=== PATIENT | male | born 1985 | race Caucasian/White ===

== ENCOUNTER → 2018-06-21 11:14 | Outpatient (CLI) | payer OTHER, SELFPAY | PROVIDERS: PCP Family Medicine; Visit Provider Physician Assistant | DX: R00.2 Palpitations (principal) | CPT/HCPCS: 93005; 93225; 93226 ==

== ENCOUNTER → 2018-06-22 16:20 | Outpatient (CLI) | payer OTHER, SELFPAY ==
--- NOTE | 2018-06-22 16:23 | CA_ITS ---
PROCEDURE: 2-D M-mode and color Doppler study INDICATIONS FOR THE TEST: Chest pain COPD Heart Murmur Tobacco Smoking+ Palpitations+ Fatigue+ Syncope Edema Hypertension Diabetes Mellitus Rheumatic Fever SOB GANDHI Obesity Hyperlipidemia Family History HD Additional History ABN EKG PATIENT INFORMATION HEIGHT: 70 WEIGHT: 200 GENDER: Male B/P: 130/82 2-D/M-MODE INTERPRETATION: 2-D MEASUREMENTS OBSERVED VALUES IN CMS Right Ventricular Dimension (RVDd) 2.0 Interventricular Septum (Thickness)(IVsd) 0.8 Left Ventricular Internal Dimensions(LVIDd) 5.1 Left Ventricular Posterior Wall (Thickness)(LVPWd) 0.8 Aortic Root 3.2 Aortic Cusp Separation 2.3 Left Atrial Dimensions (LAD) 3.4 2D 1. Left atrium is normal size, left ventricle is normal size, there is no concentric left ventricular hypertrophy, visually estimated ejection fraction of 55% with no regional wall motion abnormality. 2. The right atrium and right ventricle are normal size and contractility. 3. The aortic valve is grossly normal. 4. The mitral valve leaflets are minimally thickened. There is no mitral stenosis. 5. The tricuspid valve is grossly normal. 6. The pulmonic valve is poorly visualized. 7. No significant pericardial effusion noted. DOPPLER INTERROGATION: Doppler interrogation of the aortic, mitral and tricuspid valve reveals presence of mild mitral and tricuspid regurgitation, tricuspid regurgitation jet velocity is inadequate for calculation of the right ventricular systolic pressure, diastolic parameters are inconclusive. Inferior vena cava is not well visualized CONCLUSION: 1. Normal left ventricular size, visually estimated ejection fraction 55% with no regional wall motion abnormality, diastolic parameters are inconclusive. 2. Mild mitral and tricuspid regurgitation 3. No significant pericardial effusion noted.
--- NOTE | 2018-06-22 17:04 | XR_ITS ---
XR chest 2V HISTORY: Dyspnea, palpitations, chest pain ITS.REASON: dyspnea palps ORDERING PHYSICIAN: Mitchell Rivero MD PATIENT AGE: 32 years COMPARISON: None FINDINGS: The cardiomediastinal silhouette and pulmonary vascularity are within normal limits. The lungs are clear without infiltrates, suspicious nodules, or pleural effusions. No acute bony abnormalities. IMPRESSION: Negative chest, no acute finding
[2018-06-22 17:51] LABS: Erythrocyte Sedimentation Rate 59 mm/hr (0-15)
[2018-06-26 07:47] LABS: RA Latex Turbid. <10.0 IU/mL (0.0-13.9)
== END ==
PROVIDERS: PCP Family Medicine; Visit Provider Internal Medicine Cardiovascular Disease
DX: R00.2 Palpitations (principal); I10 Essential (primary) hypertension; M79.10 Myalgia, unspecified site; R06.09 Other forms of dyspnea; R40.0 Somnolence; R53.83 Other fatigue; R63.0 Anorexia; R68.82 Decreased libido
CPT/HCPCS: 36415; 71046; 85651; 86431; 86618; 93306

== ENCOUNTER → 2018-07-14 13:15 | Outpatient (CLI) | payer OTHER, SELFPAY | PROVIDERS: Visit Provider Internal Medicine Cardiovascular Disease | DX: R06.83 Snoring (principal); R40.0 Somnolence; R00.2 Palpitations; M79.10 Myalgia, unspecified site | CPT/HCPCS: 95806 ==

== ENCOUNTER → 2019-10-10 15:24 | Outpatient (CLI) | payer OTHER, SELFPAY ==
--- NOTE | 2019-10-10 15:25 | US_ITS ---
PROCEDURE: US GALLBLADDER CLINICAL INDICATION: right upper quad pain COMPARISON: No exams were available for comparison FINDINGS: Pancreas: Unremarkable/Not well seen Liver: Unremarkable. There is appropriate direction of blood flow within a non dilated portal vein. Right kidney: There is a 2.4 cm cyst along the lower pole of the right kidney Gallbladder: No stones are evident. There is no gallbladder wall thickening. Common duct is normal in diameter. IMPRESSION: Negative gallbladder ultrasound. No stones evident. Dictated by: Murtaza Muñoz MD 10/10/2019 16:32 Murtaza Muñoz MD in [place] 10/10/2019 16:32
== END ==
PROVIDERS: PCP Family Medicine; Visit Provider Surgery
DX: R10.11 Right upper quadrant pain (principal)
CPT/HCPCS: 76705

== ENCOUNTER → 2019-10-24 15:53 | Outpatient (CLI) | payer OTHER, SELFPAY ==
[2019-10-24 16:06] LABS: Basophils % 0.5 % (0.1-2.0); Eosinophils # 0.3 K/mm3 (0.0-0.4); Eosinophils % 3.6 % (0.1-12.0); Hematocrit 43.7 % (42.0-52.0); Hemoglobin 15.5 g/dL (14.1-18.0); Lymphocytes # 1.7 K/mm3 (0.7-4.5); Lymphocytes % 20.3 % (10-50); Mean Corpuscular HGB Conc 35.3 g/dL (31.8-35.4); Mean Corpuscular Hemoglobin 32.7 pg (27.0-31.2); Mean Corpuscular Volume 92.4 fl (80-94); Mean Platelet Volume 8.4 fl (7.4-10.4); Monocytes # 0.6 K/mm3 (0.1-1.0); Monocytes % 6.8 % (1.7-9.3); Neutrophils # 5.6 K/mm3 (1.8-7.8); Neutrophils % 68.8 % (37.0-80.0); Platelet Count 317 K/mm3 (142-424); Red Blood Count 4.73 M/mm3 (4.60-6.20); Red Cell Distribution Width 12.5 % (11.5-17.5); White Blood Count 8.2 K/mm3 (4.8-10.8)
[2019-10-24 16:56] LABS: Chloride 102 mmol/L (98-107); Potassium 4.5 mmoL/L (3.5-5.1); Sodium 142 mmol/L (136-145)
[2019-10-24 16:59] LABS: Alanine Aminotransferase 25 U/L (12-78); Alkaline Phosphatase 64 U/L (38-126); Amylase 44 U/L (30-110); Anion Gap 17.5 mEq/L (5-15); Aspartate Amino Transferase 26 U/L (17-59); Bilirubin,Total 0.5 mg/dl (0.2-1.3); Blood Urea Nitrogen 14 mg/dl (9-20); Calcium 10.6 mg/dl (8.4-10.2); Carbon Dioxide 27 mmol/L (22.0-30.0); Estimated Glomerular Filt Rate 98 ml/min (>60); GFR (African American) 118 ML/MIN (>60); Glucose 93 mg/dl (74-100); Lipase 41 U/L (23-300)
[2019-10-24 17:00] LABS: Albumin Level 5.1 g/dl (3.5-5.0); Globulin 2.6 g/dL (1.3-3.2); Total Protein,Serum 7.7 g/dl (6.3-8.2)
== END ==
PROVIDERS: Visit Provider Surgery
DX: R10.11 Right upper quadrant pain (principal)
CPT/HCPCS: 36415; 80053; 82150; 83690; 85025

== ENCOUNTER → 2019-10-25 09:02 | Outpatient (CLI) | payer OTHER, SELFPAY ==
--- NOTE | 2019-10-25 09:09 | CT_ITS ---
PROCEDURE: CT ABDOMEN PELVIS W CON CLINICAL INDICATION: Right upper quad pain INTERMITTENT EPIGASTRIC PAIN X 3 WEEKS COMPARISON: No exams were available for comparison TECHNIQUE: IV Contrast: 75ML OPTIRAY 350 Oral Contrast None Axial images obtained with sagittal and coronal reformats. All CT scans at the facility use one or more dose reduction, viz: automated exposure control, ma/kV adjustment per patient size (including targeted exams where dose is matched to indication, i.e. head), or iterative reconstruction technique. FINDINGS: LOWER THORAX: 4 mm nodules present in the right middle lobe. There are 2 nodules in the left lower lobe posteriorly at 4 mm. 4 mm nodule lingula. Calcified granuloma right lower lobe laterally. ABDOMEN & PELVIS: The liver, gallbladder, spleen, right adrenal gland, and pancreas have an unremarkable appearance. There is some nodularity of the left adrenal gland which is nonspecific and could be due to adenomatous involvement. There is a 2 cm hypodensity of the right kidney which may represent a renal cyst. No evidence of appendicitis. No intestinal obstruction or free air. No acute bony findings. There are a few small mesenteric lymph nodes which are nonspecific. There is a small umbilical hernia containing fat. IMPRESSION: No acute abdominal or pelvic findings. Please see above for details Noncalcified pulmonary nodules. Consider six-month follow-up to confirm stability. Dictated by: Murtaza Muñoz MD 10/26/2019 09:14 Murtaza Muñoz MD in [facility] 10/26/2019 09:14
== END ==
PROVIDERS: PCP Family Medicine; Visit Provider Surgery
DX: R10.11 Right upper quadrant pain (principal)
CPT/HCPCS: 74177; Q9967

== ENCOUNTER → 2020-04-25 10:06 | Outpatient (CLI) | payer OTHER, SELFPAY ==
--- NOTE | 2020-04-25 10:14 | CT_ITS ---
PROCEDURE: CT CHEST WO/W CON CLINCAL INDICATION: lung nodule 6 month follow up No symptoms at this time No prior COMPARISON: CT CT ABDOMEN PELVIS W CON from 10/25/2019 TECHNIQUE: IV Contrast: 75ml Isovue 370 Axial images obtained with sagittal and coronal reformats. All CT scans at the facility use one or more dose reduction, viz: automated exposure control, ma/kV adjustment per patient size (including targeted exams where dose is matched to indication, i.e. head), or iterative reconstruction technique. FINDINGS: HEART AND MEDIASTINAL STRUCTURES: There is mixed density in the anterior mediastinum which may be related to residual thymic tissue. LUNGS AND PLEURAL SPACES: There is a small cluster of nodular opacities in the left lower lobe posteriorly. These appear slightly more prominent but may be related to the slice orientation. Three nodules are present each measuring 4 mm. There are scattered calcified nodules noted. Previously noted 4 mm nodule in the right middle lobe actually represents a calcified granuloma. No effusions or infiltrates. BONY STRUCTURES: There are degenerative changes in the midthoracic spine. UPPER ABDOMEN: Small small hypodensity is present in the inferior tip of the right hepatic lobe too small to categorize ADDITIONAL FINDINGS: No other significant abnormalities. IMPRESSION: Cluster of noncalcified nodules are present in the left lower lobe posteriorly. Appears slightly more prominent but may be related to the slice orientation. Six-month follow-up suggested. This can be performed without contrast. Dictated by: Murtaza Muñoz MD 04/26/2020 12:43 Murtaza Muñoz MD in [facility] 04/26/2020 12:43
== END ==
PROVIDERS: PCP Family Medicine; Visit Provider Surgery
DX: R91.1 Solitary pulmonary nodule (principal); R93.89 Abnormal findings on diagnostic imaging of other specified body structures
CPT/HCPCS: 71270; Q9967

== ENCOUNTER → 2020-06-11 15:15 | Outpatient (CLI) | payer OTHER, SELFPAY ==
--- NOTE | 2020-06-11 15:21 | US_ITS ---
PROCEDURE: US THYROID CLINICAL INDICATION: THYROMEGALY COMPARISON: US THY US THYROID from 07/11/2015 FINDINGS: Right lobe: 4.0 x 1.5 x 1.8 cm. 2 mm hypoechoic nodule lower pole benign-appearing. Left lobe: 4.5 x 1.6 x 1.6 cm. No discrete nodule. Isthmus: Unremarkable Additional findings: IMPRESSION: Mildly enlarged thyroid gland on the left otherwise essentially negative thyroid ultrasound. Small right thyroid cyst benign-appearing. Dictated by: Murtaza Muñoz MD 06/11/2020 15:50 Murtaza Muñoz MD in [place] 06/11/2020 15:50
== END ==
PROVIDERS: PCP Family Medicine; Visit Provider Physician Assistant
DX: E04.9 Nontoxic goiter, unspecified (principal)
CPT/HCPCS: 76536

== ENCOUNTER 2020-10-10 20:05 | Emergency (ER) | payer OTHER, SELFPAY ==
[2020-10-10 21:05] VITALS: BP 145/91; PULSE 88; RESP 19; TEMP 38.1; O2SAT 99; BMI 28.7
[2020-10-10 21:24] VITALS: BP 145/91; PULSE 88; RESP 19; TEMP 38.1; O2SAT 99
--- NOTE | 2020-10-10 21:34 | HMH.EDUTC ---
[facility] [place] Clinical Impression: Viral syndrome, Exposure to COVID-19 virus Disposition: Home, Self-Care Condition on Discharge: Good Instructions: DI for Viral Syndrome, DI for COVID-19 (Suspected or Confirmed ), Preventing the Spread of Coronavirus Discharge Instructions Additional Instructions: Drink plenty of fluids. Take tylenol for pain or fever. Return if you begin to have difficulty breathing. Follow up with your regular doctor. GO TO THE ER FOR ANY WORSENING SYMPTOMS Quarantine until you know the results of your covid-19 test. If it is positive, the health department should call you and give you further instructions about your length of Quarantine and other things. Notify your school or workplace of your results and follow their instructions regarding return to work/school. Prescriptions: Brompheniramine/Pseudoephed/Dm [Bromfed Dm Cough Syrup] 5 ml PO Q6HP PRN #240 syrup PRN Reason: Cough Transmission Status: Received by [facility] Ondansetron [Zofran 4mg ODT] 4 mg PO Q8HP PRN #20 tab.rapdis PRN Reason: Nausea Transmission Status: Received by [facility] Referrals: Katie Drake MD [Primary Care Provider] - Forms: Work/School Release Time of Disposition: 21:39 Medical Decision Making - Medical Records Medical records reviewed: No: I reviewed the patient's medical records. - Volodymyr Inquiry Pt receiving controlled substance: No Vital Signs: 10/10/20 21:05 10/10/20 21:24 Temperature 100.6 F H 100.6 F H Temperature Source Oral Pulse Rate 88 Pulse Rate [Right Brachial] 88 Respiratory Rate 19 19 Blood Pressure 145/91 H Blood Pressure [Right Arm] 145/91 H Blood Pressure Mean [Right Arm] 109 Blood Pressure Source [Right Arm] Automatic Cuff Blood Pressure Position [Right Arm] Sitting 02 Sat by Pulse Oximetry 99 Oxygen Delivery Method Room Air - Lab Data Lab results reviewed: Yes: I reviewed the patient's lab results. [facility] [place] - General Time Seen by Provider: 10/10/20 21:34 Mode of Arrival: Ambulatory Source of Information: Patient Limitations: No Limitations Description of Symptoms (Recalled from Triage Doc. by RN): COVID TEST D/T EXPOSURE, C/O FEVER HEENT Symptoms (Recalled from RN notes): No Resp Symptoms (Recalled from RN notes): No Skin Symptoms (Recalled from RN notes): No MS Symptoms (Recalled from RN notes): No Functional Status (Recalled from RN notes): WNL - History of Present Illness Provider Complaint: He has been running a fever since last night up to 101. He would like to be checked for covid-19. - Related Data Previous Rx's Medication Instructions Recorded Brompheniramine/Pseudoephed/Dm 5 ml PO Q6HP PRN #240 syrup 10/10/20 [Bromfed Dm Cough Syrup] Ondansetron [Zofran 4mg ODT] 4 mg PO Q8HP PRN #20 tab.rapdis 10/10/20 Allergies Allergy/AdvReac Type Severity Reaction Status Date / Time No Known Allergies Allergy Verified 04/30/20 15:19 - Worker's Comp Is this a Worker's Comp case?: No H History - Hepatitis A Screen Drug use history?: No High risk sexual behaviors?: No History of sexually transmitted infection?: No Currently employed?: No Childcare worker?: No Do you have indoor plumbing?: Yes Do you have electricity?: Yes Attestation statement:: This patient has been screened for Hepatitis A risk factors. I have reviewed the patient's past medical history: Yes Medical History: Reports:: Hypertension, Palpitations Other Surgeries: Yes: Other Comment: [place] teeth - Social History Smoking Status: Current every day smoker Alcohol Intake: current Alcohol Intake Frequency:: holidays/special occasions only Substance Use Type: denies use Occupational Status: employed Family Hx:: Diabetes ROS Obtained: Yes All systems reviewed & no additional complaints - Constitutional Constitutional: Reports body ache, Reports chills, Reports fever(s), Reports poor appetite, Reports m
--- NOTE | 2020-10-11 10:12 | PC.NURSE ---
Attempted to call positive results to pt but no answer. Message left requesting a return call.
--- NOTE | 2020-10-11 10:55 | PC.NURSE ---
Pt returned call to ED and was notified of positive COVID results.
== END 2020-10-10 21:44 | disposition home or self-care (01) ==
PROVIDERS: Emergency Provider Nurse Practitioner Family; PCP Family Medicine
DX: U07.1 COVID-19 (principal); I10 Essential (primary) hypertension; R00.2 Palpitations
CPT/HCPCS: 99202; G0463; U0003

== ENCOUNTER → 2020-11-05 15:00 | Outpatient (CLI) | payer OTHER, SELFPAY ==
--- NOTE | 2020-11-05 15:03 | CT_ITS ---
PROCEDURE: CT CHEST WO/W CON CLINCAL INDICATION: nodules Follow-up nodules COMPARISON: CT CT ABDOMEN PELVIS W CON from 10/25/[address] CHEST WO/W CON from 04/25/2020 TECHNIQUE: IV Contrast: 75ml Isovue 370 Axial images obtained with sagittal and coronal reformats. All CT scans at the facility use one or more dose reduction, viz: automated exposure control, ma/kV adjustment per patient size (including targeted exams where dose is matched to indication, i.e. head), or iterative reconstruction technique. FINDINGS: HEART AND MEDIASTINAL STRUCTURES: Unremarkable. LUNGS AND PLEURAL SPACES: No change 8 mm pneumatocele right apex. Scattered calcified granulomas are once again noted. The small cluster of nodules in the left lower lobe posteriorly are unchanged. One of these nodules appears to contain some calcium.. No new nodules are evident. BONY STRUCTURES: No acute bony abnormalities apparent. UPPER ABDOMEN: Unremarkable. ADDITIONAL FINDINGS: No other significant abnormalities. IMPRESSION: Stable CT appearance of the chest. No change in the small cluster of nodules in the left lung base posteriorly. No change with no acute finding. Dictated by: Murtaza Muñoz MD 11/07/2020 09:11 Murtaza Muñoz MD in [place] 11/07/2020 09:11
== END ==
PROVIDERS: PCP Family Medicine; Visit Provider Surgery
DX: R91.1 Solitary pulmonary nodule (principal)
CPT/HCPCS: 71270; Q9967

== ENCOUNTER → 2021-07-24 12:15 | Outpatient (CLI) | payer OTHER, SELFPAY ==
[2021-07-24 13:10] LABS: Basophils # 0.1 K/mm3 (0-0.2); Basophils % 0.9 % (0.1-2.0); Eosinophils # 0.1 K/mm3 (0.0-0.4); Eosinophils % 1.6 % (0.1-12.0); Hematocrit 41.1 % (42.0-52.0); Hemoglobin 14.3 g/dL (14.1-18.0); Lymphocytes # 0.3 K/mm3 (0.7-4.5); Lymphocytes % 3.5 % (10-50); Mean Corpuscular HGB Conc 34.9 g/dL (31.8-35.4); Mean Corpuscular Hemoglobin 32.4 pg (27.0-31.2); Mean Corpuscular Volume 92.9 fl (80-94); Monocytes # 0.6 K/mm3 (0.1-1.0); Neutrophils # 6.1 K/mm3 (1.8-7.8); Neutrophils % 85.9 % (37.0-80.0); Platelet Count 308 K/mm3 (142-424); Red Blood Count 4.42 M/mm3 (4.60-6.20); Red Cell Distribution Width 12.8 % (11.5-17.5); White Blood Count 7.1 K/mm3 (4.8-10.8)
[2021-07-24 13:13] LABS: MANUAL DIFFERENTIAL MANUAL DIFFERENTIAL (MANUAL DIFF)
[2021-07-24 13:37] LABS: Strep Scrn Group A (Rapid) Negative (Negative)
[2021-07-24 16:38] LABS: Eosinophils % 1 % (0-3); Lymphocytes % 4 % (10-50); Monocytes % 8 % (2-9); Neutrophils % 87 % (42-76); Total Cells Counted 100
[2021-07-24 16:39] LABS: Platelet Estimate Normal; RBC Morphology Normal
== END ==
PROVIDERS: PCP Physician Assistant; Visit Provider Nurse Practitioner
DX: Z20.822 Contact with and (suspected) exposure to COVID-19 (principal); J06.9 Acute upper respiratory infection, unspecified
CPT/HCPCS: 36415; 85007; 85025; 87275; 87276; 87430; C9803; U0003; U0005

== ENCOUNTER → 2022-08-13 10:08 | Outpatient (CLI) | payer OTHER, SELFPAY ==
[2022-08-13 11:15] LABS: Blood Urea Nitrogen 11 mg/dl (9-20); Estimated Glomerular Filt Rate 85 ml/min (>60); GFR (African American) 103 ML/MIN (>60)
== END ==
PROVIDERS: PCP Physician Assistant; Visit Provider Family Medicine
DX: R91.1 Solitary pulmonary nodule (principal)
CPT/HCPCS: 36415; 82565; 84520

== ENCOUNTER → 2023-10-20 08:00 | Outpatient (CLI) | payer BC, OTHER, SELFPAY | LOC: SL 10-24 06:41 | PROVIDERS: PCP Physician Assistant; Visit Provider Physician Assistant | DX: G47.33 Obstructive sleep apnea (adult) (pediatric) (principal); G47.36 Sleep related hypoventilation in conditions classified elsewhere | CPT/HCPCS: G0399 ==

== ENCOUNTER 2024-12-05 16:52 | Outpatient (CLI) | payer BC, OTHER, SELFPAY ==
--- OUTSIDE RECORDS SUMMARY | 2023-10-05 11:00 | XMS_ITS ---
[facility] [address] [place] [id number] Care Team Providers Care Manager Online Name Role Phone Nancy Drake Primary Care Provider Sirena Mecca Unavailable [phone] Allergies No Known Allergies Results Component Value Reference Range Notes CBC Venipuncture (in house) Reviewed date:10/14/2023 02:39:02 PM Interpretation:Not Performed Performing Lab: Notes/Report: Not Performed P-Comprehensive Metabolic Pa corinna (CMP) Reviewed date:10/06/2023 12:52:51 PM Interpretation:Normal Performing Lab: Notes/Report: Test performed by [facility], [address] , [address], [place] [address] Dayday Grimm MD, [employer] CLIA: [id number] Sodium 139 135-145 mmol/L Potassium 4.1 3.5-5.3 mmol/L Chloride 102 97-108 mmol/L CO2 27 22-32 mmol/L Glucose 89 65-99 mg/dL BUN 11 6-20 mg/dL Creatinine 1.00 0.70-1.30 mg/dL Calcium 10.0 8.6-10.4 mg/dL eGFR by Creatinine 100 >59 mL/min/1.73m2 Protein 7.1 6.0-8.3 g/dL Albumin 4.7 3.5-5.3 g/dL Alkaline Phosphatase 57 40-129 IU/L ALT (SGPT) 30 <5-55 IU/L AST (SGOT) 17 <5-46 IU/L Bilirubin, Total 0.5 <0.2-1.2 mg/dL A/G Ratio 2.0 1.1-2.5 P-Lipid Panel Reviewed date:10/06/2023 12:52:51 PM Interpretation:hdl 32 Performing Lab: Notes/Report: Test performed by [facility], [employer] [address] [place] [address] , [address], [place] [address] Dayday Grimm MD, [employer] CLIA: [id number] Cholesterol 128 <200 mg/dL Triglycerides 131 <150 mg/dL HDL Cholesterol 32 >39 mg/dL Cholesterol / HDL Ratio 4.00 0.00-4.99 Ratio Non-HDL Cholesterol 96 <130 mg/dL LDL Cholesterol (Calculation) 70 <130 mg/dL LDL Cholesterol Levels* Less than 100 mg/dL Optimal 100 to 129 mg/dL Near Optimal/ Above Optimal 130 to 159 mg/dL Borderline High 160 to 189 mg/dL High 190 mg/dL and above Very High * Categories as recommended by the 2004 ATPIII guidelines LDL/HDL Ratio 2.2 <3.3 Ratio LDL Cholesterol Patient History Test Date: 10/05/2023 LDL Results: 70 Units: mg/dL % Change: - P-TSH reflex to FT4 Reviewed date:10/06/2023 12:52:51 PM Interpretation:Normal Performing Lab: Notes/Report: Test performed by [facility] [address] [place] [address] , [address], [place] [address] Dayday Grimm MD, [employer] CLIA: [id number] TSH reflex to FT4 1.12 0.43-5.25 mU/L P-Vitamin D 25-Hydroxy Reviewed date:10/06/2023 12:52:51 PM Interpretation:25.6 Performing Lab: Notes/Report: Test performed by [facility] [address] [place] [address] , [address], [place] [address] Dayday Grimm MD, [employer] CLIA: [id number] Vitamin D 25-Hydroxy 25.6 30.0-100.0 ng/mL Interpretation of Vitamin D 25 OH: < 20 ng/mL - Deficiency 20 - 29 ng/mL - Insufficiency 30 - 100 ng/mL - Sufficiency > 100 ng/mL - Super-therapeutic- toxicity may occur above this level. Clinical correlation required. sleep study Reviewed date:10/26/2023 08:57:38 AM Interpretation: Performing Lab: Notes/Report: REASON FOR VISIT check up Medications Medication SIG (Take, Route, Fr equency, Duration) Notes Start Date End Date Status CPAP Supplies - as directed as directed 08/09/2022 Active Xyosted 75 MG/0.5ML as directed subcutan eously once a week Active Vitamin D3 50 MCG (1999) as directed orally once a day 06/12/2020 Active Losartan Potassium-HCTZ 100-12.5 MG 1 tablet Orally Once a day; Duration: 90 days Active Problems Problem Type SNOMED Code ICD Code Onset Dates Problem Status W/U Status Risk Notes Problem Essential hypertension (57439572) Essential hypertension (I10) Active confirmed Vital Signs Blood pressure systolic 126 mm Hg 10/05/19 24 Blood pressure diastolic 80 mm Hg 024 Heart Rate 92 /min 10/05/2023 Height 71 in 10/05/2023 Weight 225.8 lbs 10/05/2023 BMI 31.49 kg/m2 10/05/2023 Encounters Encounter Location Date Provider Diagnosis [facility] [address] [place], [place] [id number] 10/05/2023 [facility] MATTHEW (obstructive sle ep apnea) G47.33 ; Essential hypertension I10 ; Vitamin D deficiency E55.9 ; Testosterone deficiency E34.9 and Screening, lipid Z13.220 Assessments Encounter Date Diagnosis (ICD Code) Assessment Notes Treatment Notes Treatment Clinical Notes Section Notes 10/05/2023 MATTHEW (obstructive sleep apnea) (ICD-10 - G47.33) 10/05/2023 Essential hypertension (ICD-10 - I10) 10/05/2023 Vitamin D deficiency (ICD-10 - E55.9) 10/05/2023 Testosterone deficiency (ICD-10 - E34.9) Patient is followed by urology. 10/05/2023 Screening, lipid (ICD-10 - Z13.220) Plan Of Treatment Medication Medication Name Sig Start Date Stop Date Notes Losartan Potassium-HCTZ 100-12.5 MG 1 tablet Orally Once a day; Duration: 90 days Treatment Notes Assessment Notes Testosterone deficiency Patient is follo wed by urology. Next Appt Details Follow Up: via phone to repo rt test results, Reason: Provider Name:Mecca vieira, 12/05/2024 04:00:00 PM, [address] [facility] [address] [facility], [address] , [place], [place], [id number], Progress Notes * ALANNA ROGELIOLAYNEOB: 7 (38 yo M)Acc No.[id number]:10/05/2023 Progress Notes Patient: PABLO GARSIA Provider: MELANI Andrade :1985 A ge:37 Y S ex:Male Date:10/05/2023 Address:[address] [place] [address] [place], [id number] Pcp:Nancy Drake Subjective: * Chief Complaints: * 1 . Check up. * HPI: C ardiology: Pt is here today for a check up. Pt sts that he last ate at 8 am. Pt sts he was dx with sleep apnea a few years ago and never followed through with treatment and he would like to discuss starting that. * ROS: D ERMATOLOGY: no R jeyson. n o H lito. G ASTROENTEROLOGY: no N ausea. n o V omiting. n o D iarrhea.? U ROLOGY: no D ifficulty urinating. n o B lood in urine. * Medical History: H ypertension, Testosterone deficiency, Vitamin D deficiency, Pneumonia. * Surgical History: W isdom Teeth Extracted 2008. * Hospitalization/Major Diagno stic Procedure: P denise 1989. * Family History: F ather: alive. M other: alive. 1 brother(s) . 1 son(s) , 1 daughter(s) - healthy. .? * Social History: C URRENT TOBACCO USE S moking Status: Patient does smoke, packs per day: 1, number of cigarettes per day: 3, Since age of: 16, Smoking preference: cigarettes. C affeine: yes, frequency: pepsi, daily. Exercise: no. Home smoke detector use: yes. Marital Status: Single. Occupation: student. Past smoking status: yes, PPD: 1/2 , years: 3 ,determination: would like help to quit. Recreational drug use: yes, Past use: marijuana a few times, 8 months to a year ago, pt states he does not do it now. Alcohol: Yes, Type: beer, Frequency: 12 pk once a week , Years: 1 , Determination: continue. Sexually active: no.. * Medications: T aking Xyosted 75 MG/0.5ML Solution Auto-injector as directed subcutaneously once a week , Taking Vitamin D3 50 MCG (2000 UT) Tablet as directed orally once a day , Taking CPAP Supplies - - as directed as directed , Taking Losartan Potassium- HCTZ 100-12.5 MG Tablet 1 tablet Orally Once a day , Discontinued methylPREDNISolone 4 MG Tablet Therapy Pack as directed Orally , Medication List reviewed and reconciled with the patient * Allergies: N .K.D.A. Objective: * Vitals: W t:225.8, Temp:98.4, BP:126/80, HR:92, Nurse:ALCIDES, Ht: 71, BMI:31.49. * Examination: G eneral Examination: General Appearance: N AD. H EENT: u nremarkable.?Oral cavity: n o lesions, mucosa moist and WNL, no erythema. N sneha: s upple, no lymphadenopathy. C hest: n ormal shape and expansion. H eart: R SR. L ungs: c lear to auscultation. A bdomen: bowel sounds present. N eurologic Exam: I ntact, gait normal. S kin: n ormal, no rash. P eripheral pulses: n ormal (2+) bilaterally.?Extremities: n o leg edema. Assessment: * Assessment: 1. E ssential hypertension - I10 (Primary) 2 . O SA (obstructive sleep apnea) - G47.33 3 . V itamin D deficiency - E55.9 4 . T estosterone deficiency - E34.9 5 . S creening, lipid - Z13.220 Plan: * Treatment: Value Reference Range A /G Ratio 2.0 1.1-2.5 - * A lbumin 4.7 3.5-5.3 - g/dL * A lkaline Phosphatase 57 40-129 - IU/L * A LT (SGPT) 30 <5-55 - IU/L * A ST (SGOT) 17 <5-46 - IU/L * B ilirubin, Total 0.5 <0.2-1.2 - mg/dL * B UN 11 6-20 - mg/dL * C alcium 10.0 8.6-10.4 - mg/dL * C hloride 102 97-108 - mmol/L * C O2 27 22-32 - mmol/L * C reatinine 1.00 0.70-1.30 - mg/dL * G lucose 89 65-99 - mg/dL * P otassium 4.1 3.5-5.3 - mmol/L * S odium 139 135-145 - mmol/L * P rotein 7.1 6.0-8.3 - g/dL * e GFR by Creatinine 100 >59 - mL/min/1.73m2 * [facility] 10/06/2023 12 :52:43 PM > see TE ?LAB: P-TSH reflex to FT4 (Collection Date & Time - 10/05/2023 02:44 PM)? Normal* Value Reference Range T SH reflex to FT4 1.12 0.43-5.25 - mU/L * [facility] 10/06/2023 12 :52:43 PM > see TE ?LAB: CBC Venipuncture (in house) (Collection Date & Time - 10/05/2023)?Not Performed* Stacia Kumar 10/14/2023 2:33 :59 PM > not performed 2.?MATTHEW (obstructive sleep apnea)?Imaging: sleep study (Performed Date - 10/15/2023)* [facility] 10/05/2023 3: 30:10 PM >Elenita Scanlon 10/05/2023 4:01:54 PM > faxed to [facility] 10/26/2023 8:57:34 AM > see TE 3.?Vitamin D deficiency?LAB: P-Vitamin D 25-Hydroxy (Collection Date & Time - 10/05/2023 02:44 PM)? 25.6* Value Reference Range V itamin D 25-Hydroxy 25.6 L 30.0-100.0 - ng/mL * [facility] 10/06/2023 12 :52:43 PM > see TE 4.?Testosterone deficiency? Notes: Patient is followed by urology.??5.?Screening, lipid?LAB: P-Lipid Panel (Collection Date & Time - 10/05/2023 02:44 PM)?hdl 32* Value Reference Range C holesterol / HDL Ratio 4.00 0.00-4.99 - Ratio * C holesterol 128 <200 - mg/dL * H DL Cholesterol 32 L >39 - mg/dL * L DL Cholesterol (Calculation) 70 <130 - mg/d L * L DL/HDL Ratio 2.2 <3.3 - Ratio * N on-HDL Cholesterol 96 <130 - mg/dL * T riglycerides 131 <150 - mg/dL * [facility] 10/06/2023 12 :52:43 PM > see TE * Procedure Codes: 8 5025 CBC WITH AUTO DIFF, 66746 VENIPUNCT, ROUTINE* * Follow Up: v ia phone to report test results * Images: Billing Information: * Visit Code: 71700 Office Visit, Est Pt., Level 4. * Procedure Codes: 98371 CBC WITH AUTO DIFF. 28779 VENIPUNCT, ROUTINE*. * Electronic signature of MELANI Servin on 12/05/2024 at 04:55 PM EDT Sign off status: Pending * Provider: MELANI Andrade Date: 0 10/05/2023 Generated for [place] saini/Emily/Sophiaitting on: 1 04:55 PM EDT History and Physical Notes * Examination Category Sub-Category Detail Notes Category Not es General Examination HEENT: unremarkable Heart: RSR Lungs: clear to auscultatio n Abdomen: bowel sounds present Extremities: no leg edema General Appearance: NAD Skin: normal, no rash Neurologic Exam: Intact, gait normal Neck: supple, no lymphaden opathy Oral cavity: no lesions, mucosa m oist and WNL, no erythema Peripheral pulses: normal (2+) bilatera lly Chest: normal shape and exp ansion
--- OUTSIDE RECORDS SUMMARY | 2024-12-05 16:56 | XMS_ITS | Patient Health Record ---
[facility] [address] [place] [id number] Care Team Providers Care Mapping Pilot Name Role Phone Nancy Drake Primary Care Provider RehanMecca roberson Unavailable [phone] Allergies No Known Allergies Reason For Referral No Information Medications Medication SIG (Take, Route, Fr equency, Duration) Notes Start Date End Date Status Losartan Potassium-HCTZ 100-12.5 MG 1 tablet Orally Once a day; Duration: 90 days Active CPAP machine and supplies - as directed as directed 11/02/2023 Acti ve CPAP Supplies - as directed as directed 08/09/2022 Active Vitamin D3 50 MCG (1999 UT) as directed orally once a day 06/12/2020 Active Xyosted 75 MG/0.5ML as directed subcutan eously once a week Active Immunizations Vaccine Route Administration Date Status Comme nts MMR Unknown 09/12/1998 Administered Tetanus-DT IM Intramuscular 01/26/2005 Administered Problems Problem Type SNOMED Code ICD Code Onset Dates Problem Status W/U Status Risk Notes Problem Vitamin D deficiency (48518215) Vitamin D deficiency (E55.9) Active confirmed Problem Essential hypertension (89198992) Essential hypertension (I10) Active confirmed Problem Solitary nodule of lung (919776455) Lung nodule (R91.1) Active confirmed Problem Mixed anxiety and depressive disorder (923628222) Depression with anxiety (F41.8) Active confirmed Problem Thyromegaly (4447469) Thyromegaly (E04.9) Active confirmed Problem Plantar wart (81730063) Plantar wart (B07.0) Active confirmed Problem Leukocytosis (065148249) Leukocytosis, unspecified type (D72.829) Active confirmed Problem Obstructive sleep apnea syndrome (28882553) MATTHEW (obstructive sleep apnea) (G47.33) Active confirmed Problem Obstructive sleep apnea syndrome (94706628) Severe obstructive sleep apnea (G47.33) Active confirmed Problem Essential hypertension (59549608) Essential hypertension with goal blood pressure less than 130\/80 (I10) Active confirmed Problem Primary hypertension (58165822) Primary hypertension (I10) Active confirmed Vital Signs Heart Rate 81 /min 12/05/2024 Blood pressure diastolic 80 mm Hg 12/05/2024 Height 71 in 12/05/2024 Blood pressure systolic 130 mm Hg 12/05/2024 Weight 207 lbs 12/05/2024 BMI 28.87 kg/m2 12/05/2024 Encounters Encounter Location Date Provider Diagnosis [address] [id number] 12/05/2024 Mecca Pack Essential hypertensi on I10 ; MATTHEW (obstructive sleep apnea) G47.33 ; Vitamin D deficiency E55.9 ; Testosterone deficiency E34.9 ; Screening, lipid Z13.220 ; Lung nodules R91.8 and Thyromegaly E04.[address] [id number] 05/30/2024 Nancy Drake Essential hypertensi on I10 [address] [id number] 06/01/2024 Mecca Pack Essential hypertensi on I10 Assessments Encounter Date Diagnosis (ICD Code) Assessment Notes Treatment Notes Treatment Clinical Notes Section Notes 05/30/2024 Essential hypertension (ICD-10 - I10) 06/01/2024 Essential hypertension (ICD-10 - I10) 12/05/2024 Essential hypertension (ICD-10 - I10) 12/05/2024 MATTHEW (obstructive sleep apnea) (ICD-10 - G47.33) 12/05/2024 Vitamin D deficiency (ICD-10 - E55.9) 12/05/2024 Testosterone deficiency (ICD-10 - E34.9) Patient is followed by urology. 12/05/2024 Screening, lipid (ICD-10 - Z13.220) 12/05/2024 Lung nodules (ICD-10 - R91.8) 12/05/2024 Thyromegaly (ICD-10 - E04.9) Plan Of Treatment Pending Test Test Name Order Date H-TSH 12/05/2024 H-CBC 12/05/2024 H-Lipid Panel 12/05/2024 H-CMP 12/05/2024 H-T4 free 12/05/2024 H-Vitamin D 1,25 12/05/2024 Next Appt Details Provider Name:Mecca vieira, 12/05/2024 04:00:00 PM, [address], [address], [place], [place], [id number], Insurance Providers Payer Name Payer Address Payer Phone Subscriber Number Group Number Insured Name Patient Relationship to Insured Coverage Start Date Coverage End Date LORIE MELÉNDEZ [employer] [address] [place] [address] [id number] PABLO MONDRAGON Self - patient is the insured Medical (General) History Medical History History ICD Code Hypertension Testosterone deficiency Vitamin D deficiency pneumonia Surgical History Surgery Date(Month/Year) [place] Teeth Extracted 2008 Hospitalization History Reason Date(Month/Year) Pneumonia 1989
[2024-12-05 17:23] LABS: Hematocrit 46.0 % (42.0-52.0); Hemoglobin 15.5 g/dL (14.1-18.0); Immature Granulocytes % 0.2 %; Mean Corpuscular HGB Conc 33.7 g/dL (31.8-35.4); Mean Corpuscular Hemoglobin 30.5 pg (27.0-31.2); Mean Corpuscular Volume 90.6 fl (80-94); Nucleated Red Blood Cells % 0 %; Platelet Count 293 K/mm3 (142-424); Red Blood Count 5.08 M/mm3 (4.60-6.20); Red Cell Distribution Width-SD 39.5 fL; White Blood Count 6.6 K/mm3 (4.8-10.8)
[2024-12-05 17:56] LABS: Alanine Aminotransferase 33 U/L (12-78); Albumin Level 4.8 g/dl (3.5-5.0); Albumin/Globulin Ratio 1.9 (1.1-1.8); Alkaline Phosphatase 66 U/L (38-126); Anion Gap 17.9 mEq/L (5-15); Aspartate Amino Transferase 24 U/L (17-59); Bilirubin,Total 1.2 mg/dl (0.2-1.3); Blood Urea Nitrogen 12 mg/dl (9-20); Calcium 9.8 mg/dl (8.4-10.2); Carbon Dioxide 26 mmol/L (22.0-30.0); Chloride 99 mmol/L (98-107); Cholesterol 141 mg/dl (140-200); Creatinine,Serum 1.00 mg/dl (0.66-1.25); Estimated Glomerular Filt Rate 84 ml/min (>60); GFR (African American) 102 ML/MIN (>60); Globulin 2.5 g/dL (1.3-3.2); Glucose 93 mg/dl (74-100); HDL Cholesterol 40 mg/dl (40-60); Potassium 3.9 mmoL/L (3.5-5.1); Sodium 139 mmol/L (136-145); Total Protein,Serum 7.3 g/dl (6.3-8.2); Triglycerides 75 mg/dl (30-150)
[2024-12-05 18:16] LABS: Free T4 (Free Thyroxine) 0.94 ng/dl (0.78-2.19)
[2024-12-05 18:17] LABS: 25-OH Vitamin D, Total 37.1 ng/mL (30-100)
[2024-12-05 18:26] LABS: Thyroid Stimulating Hormone 0.86 uIU/mL (0.465-4.68)
== END 2024-12-05 23:59 | disposition home or self-care (01) ==
LOC: LAB 16:54
PROVIDERS: PCP Physician Assistant; Visit Provider Physician Assistant
DX: E55.9 Vitamin D deficiency, unspecified (principal); E04.9 Nontoxic goiter, unspecified; I10 Essential (primary) hypertension; Z13.220 Encounter for screening for lipoid disorders
CPT/HCPCS: 36415; 80053; 80061; 82306; 84439; 84443; 85025